=== PATIENT | female | born 1965 | race Caucasian/White ===

== ENCOUNTER 2018-02-24 23:22 | Emergency (ER) | payer OTHER ==
[~2018-02-24] VITALS: Ht 170.2 cm; Wt 70.3 kg
[2018-02-24 23:45] VITALS: BP 154/88
[2018-02-24] MEDS ORDERED: LEVOTHYROXINE75 MCG PO (23:45)
--- NOTE | 2018-02-24 23:50 | ED SYNCOPE COMPLAINT ---
History of Present Illness General Chief Complaint: General Adult Stated Complaint: PT C/O BACK PAIN,FEELING FAINT,EAR PROB BETTER NOW Source: patient, family Exam Limitations: no limitations Vital Signs & Intake/Output Vital Signs & Intake/Output Vital Signs Date Time Temp Pulse Resp B/P B/P Pulse O2 O2 Flow FiO2 Mean Ox Delivery Rate 02/24 2347 100 Room Air 02/24 2345 98.0 88 18 154/88 100 Room Air ED Intake and Output 02/25 0000 02/24 1200 Intake Total Output Total Balance Patient 155 lb Weight Weight Reported by Patient Measurement Method Allergies Coded Allergies: No Known Allergies (02/24/18) Reconcile Medications Levothyroxine Sodium 75 MCG TABLET 1 TAB PO DAILY HYPOTHYROID (Reported) Triage Note: TRIAGE: PATIENT TO ER REPORTING 1 HOUR AGO "SITTING IN CHAIR AND HAD SEVERE UPPER BACK PAIN, THINK I WAS SITTING WEIRD, SAT UP AND FELT FAINT. GENERAL WEAKNESS AND COULDN'T GET UP. RINGING IN EARS X 10 MINUTES AND THEN WENT AWAY ON OWN." DENIES SYNCOPE. ALERT AND ORIENTED X3. Triage Nurses Notes Reviewed? yes HPI: Patient was in a chair when she had a sudden onset of back pain in her mid back. Patient states he felt like a pop and sudden onset of pain. Patient then felt a ringing in her ear and felt like she was pass out. The symptoms lasted a few minutes and then resolved. Patient is currently pain and symptom-free. Patient just wants to make sure that everything is okay. When she had the back pain it was a sharp sensation. There is no radiation. There are no aggravating or mitigating factors. She rates the pain at 7 out of 10. Past History Travel History Traveled to [place] past 21 day No Medical History Any Pertinent Medical History? 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 No Review of Systems Review of Systems Constitutional: Reports: no symptoms. EENTM: Reports: see HPI. Respiratory: Reports: no symptoms. Cardiovascular: Reports: no symptoms. GI: Reports: no symptoms. Genitourinary: Reports: no symptoms. Musculoskeletal: Reports: see HPI, back pain. Skin: Reports: no symptoms. Neurological/Psychological: Reports: no symptoms. All Other Systems: Reviewed and Negative Physical Exam Physical Exam General Appearance: well developed/nourished, alert, awake, mild distress Head: atraumatic, normal appearance Eyes: Bilateral: PERRL, EOMI. Ears, Nose, Throat: normal pharynx, normal ENT inspection, hearing grossly normal Neck: normal inspection, supple, full range of motion Respiratory: normal breath sounds, chest non-tender, no respiratory distress, lungs clear Cardiovascular: regular rate/rhythm, normal peripheral pulses Gastrointestinal: normal bowel sounds, soft, non-tender, no organomegaly Back: normal inspection, normal range of motion Extremities: normal inspection, normal capillary refill, normal range of motion, no edema Psychiatric: awake, alert, oriented x 3 Cranial Nerves: normal hearing, normal speech, PERRL Coordination/Gait: normal gait Motor/Sensory: no motor/sensory deficits Skin: intact, normal color, warm/dry Core Measures ACS in differential dx? No CVA/TIA Diagnosis: No Sepsis Present: No Sepsis Focused Exam Completed? No Progress Differential Diagnosis: AMI, orthostatic syncope, pulmonary embolus, sick sinus syndrome Plan of Care: Orders Procedure Date/time Status TROPONIN LEVEL 02/25 211 Complete EKG 02/25 211 Active TROPONIN LEVEL 02/24 2346 Complete COMPREHENSIVE METABOLIC PANEL 02/24 2346 Complete CBC WITHOUT DIFFERENTIAL 02/24 2346 Complete EKG 02/24 2346 Active Laboratory Tests 02/25/18 0215: Troponin I < 0.01 02/25/18 0000: Anion Gap 12, Estimated GFR > 60, BUN/Creatinine Ratio 22.9, Glucose 92, Calcium 9.1, Total Bilirubin 0.6, AST 23, ALT 28, Alkaline Phosphatase 46, Troponin I < 0.01, Total Protein 6.9, Albumin 4.2, Globulin 2.7, Albumin/Globulin Ratio 1.6, CBC w Diff NO MAN DIFF REQ, RBC 4.26, MCV 70.8 L, MCH 23.3 L, MCHC 33.0, RDW 15.8 H, MPV 7.0 L, Gran % 47.4, Lymphocytes % 38.4, Monocytes % 11.7 H, Eosinophils % 2.0, Basophils % 0.5, Absolute Granulocytes 3.0, Absolute Lymphocytes 2.4, Absolute Monocytes 0.7 H, Absolute Eosinophils 0.1, Absolute Basophils 0 Diagnostic Imaging: Viewed by Me: Radiology Read. Discussed w/RAD: Radiology Read. CXR Impression: PATIENT: ANGY HUGO PRESENT AGE: 52 PATIENT ACCOUNT NO: [id number] : 66 LOCATION: [facility] ORDERING PHYSICIAN: Damion Rabago MD SERVICE DATE: 02/24/18 EXAM TYPE: RAD - XRY-CHEST XRAY, TWO VIEWS EXAMINATION: XR CHEST CLINICAL INFORMATION: Chest pain COMPARISON: None TECHNIQUE: 2 views of the chest were obtained. FINDINGS: The lungs are clear with no focal consolidation. No evidence of pneumothorax, pulmonary edema, or pleural effusions. The cardiomediastinal silhouette is unremarkable. No acute osseous findings. IMPRESSION: No acute cardiopulmonary findings. 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 <Electronically signed in Other Vendor System> SIGNED BY: Jordy Kim MD 02/25/18 010 Initial ED EKG: NSR, nonspecific ST T wave chg Repeat EKG: unchanged Departure Departure Disposition: HOME OR SELF CARE Condition: Stable Clinical Impression Primary Impression: Near syncope Referrals: Shannan Pitts APRN (PCP/Family) Heydi Rios MD Additional Instructions: FOLLOW UP WITH DR. RIOS, A [employer]AME [employer]TER, TO DO FURTHER TESTING TO MAKE SURE YOUR HEART IS OKAY RETURN IF SYMPTOMS COME BACK OR FOR ANY CONCERNS Departure Forms: Customer Survey General Discharge Information
[2018-02-25 00:09] LABS: ABSOLUTE BASOPHIL COUNT 0 /CUMM (0.0-0.2); ABSOLUTE EOSINOPHIL COUNT 0.1 /CUMM (0.0-0.7); ABSOLUTE LYMPH COUNT 2.4 /CUMM (1.2-3.4); ABSOLUTE MONOCYTE COUNT 0.7 /CUMM (0.10-0.60); BASOPHIL % 0.5 % (0.0-2.0); GRANULOCYTE % 47.4 % (42.2-75.2); HEMATOCRIT 30.2 % (37-47); MEAN CORPUSCULAR HGB 23.3 PG (27.0-31.0); MEAN CORPUSCULAR VOLUME 70.8 FL (81.0-99.0); PLATELET COUNT 272 /CUMM (130-400); RBC DISTRIBUTION WIDTH 15.8 % (11.5-14.5); RED BLOOD CELL CT 4.26 /CUMM (4.20-5.40); WHITE BLOOD CELL COUNT 6.3 /CUMM (4.8-10.8)
--- NOTE | 2018-02-25 01:03 | RADIOLOGY REPORT ---
EXAMINATION: XR CHEST CLINICAL INFORMATION: Chest pain COMPARISON: None TECHNIQUE: 2 views of the chest were obtained. FINDINGS: The lungs are clear with no focal consolidation. No evidence of pneumothorax, pulmonary edema, or pleural effusions. The cardiomediastinal silhouette is unremarkable. No acute osseous findings. IMPRESSION: No acute cardiopulmonary findings.
== END 2018-02-25 03:06 ==
LOC: ERH 23:22
PROVIDERS: Emergency Medicine
DX: R55 Syncope and collapse (principal)
CPT/HCPCS: 71046; 93005; 93010